=== PATIENT | male | born 1970 ===

== ENCOUNTER 2017-12-14 15:53 | Emergency (ER) | payer OTHER ==
[~2017-12-14] VITALS: Ht 157.5 cm; Wt 95.5 kg
[2017-12-14 16:03] VITALS: TEMP 98.6
[2017-12-14 17:14] LABS: COLLECTION METHOD CLEAN CATCH
[2017-12-14 17:14] LABS: BASO # 0.1 (0.0-0.2); BASO % 0.6 % (0.0-2.0); EOS % 0.3 % (0-4.0); GRAN # 6.5 (1.4-6.5); GRAN % 63.3 % (42.2-75.2); HEMATOCRIT 43.8 % (42.0-52.0); HEMOGLOBIN 14.9 g/dl (13.5-18.0); MEAN CELL VOLUME 86 fl (80.0-100.0); MEAN CORPUSCULAR HEMOGLOBIN 29 pg (27.0-31.0); MEAN CORPUSCULAR HGB CONC 34 g/dl (33.0-37.0); MEAN PLATELET VOLUME 11.3 fl (7.4-10.4); MONO # 0.7 (0.1-0.6); MONO % 6.5 % (1.7-9.3); PLATELET COUNT 189 K/mm3 (130-400); RED BLOOD COUNT 5.07 M/mm3 (4.20-5.60); REDCELL DISTRIBUTION WIDTH-CV 12.3 % (11.5-14.5)
[2017-12-14 17:19] LABS: ALANINE AMINOTRANSFERASE 49 U/L (21-72); ALBUMIN 4.3 gm/dL (3.5-5.0); ALKALINE PHOSPHATASE 65 U/L (50-136); ANION GAP 12 mmol/L (7-16); AST,SGOT 47 U/L (15-37); BILIRUBIN,TOTAL 0.4 mg/dL (0.0-1.0); BLOOD UREA NITROGEN 12 mg/dL (9-20); CALCIUM 9.2 mg/dL (8.4-10.2); CARBON DIOXIDE 26 mmol/L (22-30); CHLORIDE 101 mmol/L (98-107); GLUCOSE 110 mg/dL (74-106); POTASSIUM 3.8 mmol/L (3.4-5.0); SODIUM 139 mmol/L (137-145); TOTAL PROTEIN 8.3 gm/dL (6.4-8.2)
[2017-12-14 17:27] LABS: ALCOHOL(ethanol),MEDICAL < 10 mg/dL
[2017-12-14 17:29] LABS: MUCOUS Present /lpf; PH 5 (5-8); SQUAMOUS EPITHELIAL None Seen /hpf; URINE APPEARANCE Clear; URINE BACTERIA None Seen /hpf; URINE BILIRUBIN Negative (NEGATIVE); URINE BLOOD Negative (NEGATIVE); URINE COLOR Yellow; URINE GLUCOSE Negative (NEGATIVE); URINE KETONE Negative (NEGATIVE); URINE LEUKOCYTE ESTERASE Negative (NEGATIVE); URINE NITRATE Negative (NEGATIVE); URINE PROTEIN(semi-quant) 2+ (NEGATIVE); URINE RBC 0-2 /hpf
[2017-12-14 17:37] VITALS: BP 136/70; PULSE 87
== END 2017-12-14 17:38 | disposition home or self-care (01) ==
LOC: COL.ER 15:53
PROVIDERS: Family Medicine
DX: S16.1XXA Strain of muscle, fascia and tendon at neck level, initial encounter (principal); S20.229A Contusion of unspecified back wall of thorax, initial encounter; V09.9XXA Pedestrian injured in unspecified transport accident, initial encounter

== ENCOUNTER → 2017-12-24 | Outpatient (CLI) | payer OTHER | LOC: COL.RAD 12:46 | DX: M48.54XA Collapsed vertebra, not elsewhere classified, thoracic region, initial encounter for fracture (principal); S29.9XXS Unspecified injury of thorax, sequela; V00-Y99 External causes of morbidity ==

== ENCOUNTER → 2018-02-10 | Outpatient (CLI) | payer OTHER | LOC: COL.RAD 11:15 | DX: M99.71 Connective tissue and disc stenosis of intervertebral foramina of cervical region (principal); M47.897 Other spondylosis, lumbosacral region; M43.17 Spondylolisthesis, lumbosacral region; M51.27 Other intervertebral disc displacement, lumbosacral region; M46.97 Unspecified inflammatory spondylopathy, lumbosacral region; G62.9 Polyneuropathy, unspecified ==

== ENCOUNTER → 2018-03-12 | Outpatient (CLI) | payer OTHER | LOC: MHCPAIN 10:06 | DX: G89.29 Other chronic pain (principal); M47.817 Spondylosis without myelopathy or radiculopathy, lumbosacral region; M54.16 Radiculopathy, lumbar region; M53.3 Sacrococcygeal disorders, not elsewhere classified | CPT/HCPCS: G0463 ==